=== PATIENT | male | born 1960 | race Two or more races ===

== ENCOUNTER 2024-11-22 13:34 | Inpatient (IN) | payer OTHER ==
[~2024-11-22] VITALS: Ht 160 cm; Wt 86.2 kg
[2024-11-22] MEDS ORDERED: ALBUTEROL SULFAT4 MG PO (15:33)
[2024-11-22] MEDS ORDERED: FLONASE16 GM NS (15:33)
[2024-11-22] MEDS ORDERED: MONTELUKAST SOD10 MG PO (15:33)
[2024-11-22] MEDS ORDERED: LOSARTAN-HCTZ1 EACH PO (15:33)
[2024-11-22] MEDS ORDERED: TRELEGY ELLIPT1 EACH IH (15:34)
[2024-11-22] MEDS ORDERED: KETOROLAC TROMETHAMINE 30 MG VIAL IV ONE (16:15)
[2024-11-22] MEDS ORDERED: FAMOTIDINE/PF 20 MG/2 ML VIAL IV ONE (16:15)
[2024-11-22] MEDS ORDERED: ONDANSETRON HCL 2 MG/ML VIAL IV ONE (16:15)
[2024-11-22] MEDS ORDERED: 0.9 % SODIUM CHLORIDE 500 ML IV ONE (16:15)
[2024-11-22 17:00] LABS: HEMATOCRIT 42.2 % (39.0-48.0); MEAN CELL VOLUME 93.4 fL (80.0-100.00); MEAN CORPUSCULAR HEMOGLOBIN 31.1 pg (27.00-32.0); MEAN CORPUSCULAR HGB CONC 33.3 g/dl (32.0-36.0); PLATELET COUNT 211 K/uL (150-450); RED BLOOD COUNT 4.51 M/uL (4.00-6.00); RED CELL DISTRIBUTION WIDTH 14.1 % (11.5-14.5)
[2024-11-22 17:27] LABS: ALBUMIN 3.3 gm/dL (3.4-5.0); BILIRUBIN TOTAL 0.87 mg/dL (0.3-1.2); CALCIUM 8.7 mg/dL (8.5-10.1); CREATININE SERUM 1.03 mg/dL (0.70-1.30); GFR 72.94; GLOBULINA 4.3 G/DL (2.4-3.5); POTASSIUM 3.87 mEq/L (3.5-5.1); TOTAL PROTEIN 7.6 gm/dL (6.4-8.2)
[2024-11-22 17:44] LABS: BILIRUBIN,CONJUGATED 0.15 mg/dL (0.0-0.2); BILIRUBIN,UNCONJUGATED 0.72 mg/dL (0.0-0.6)
[2024-11-22 17:58] LABS: PH,URINE 5.5 (5.0-8.0); URINE APPEARANCE Clear; URINE BILIRRUBIN Negative (NEGATIVE); URINE BLOOD Negative; URINE COLOR Yellow; URINE GLUCOSE Negative (NEGATIVE); URINE KETONE Negative (NEGATIVE); URINE LEUKOCYTE Negative; URINE NITRATE Negative; URINE PROTEIN Negative (NEGATIVE); URINE UROBILINOGEN 0.2 E.U./dl
[2024-11-22 18:03] LABS: URINE BACTERIA 19.5 uL (0.0-1933); URINE RBC 2.5 uL (0.0-20.8)
[2024-11-22 18:10] LABS: URINE EPITHELIAL CELLS 0.9 uL (0.0-38.8); URINE WBC 1.7 uL (0.0-23.2)
[2024-11-22 19:18] LABS: INR 1.04; PARTIAL THROMBOPLASTIN TIME 27.7 SECONDS (22.0-34.0); PROTHROMBIN TIME 11.3 SECONDS (9.0-11.5)
[2024-11-22] MEDS ORDERED: PIPERACILLIN/TAZOBACTAM SODIUM 3.375 GM VIAL IV ONE (22:15)
[2024-11-22] MEDS ORDERED: MORPHINE SULFATE 4 MG/ML CARTRIDGE IV SCH (22:30)
[2024-11-22] MEDS ORDERED: ONDANSETRON HCL 4 MG in 0.9 % SODIUM CHLORIDE 50 ML IV PRN (22:30)
[2024-11-22] MEDS ORDERED: ACETAMINOPHEN 500 MG GEL..CAP PO PRN (22:30)
[2024-11-22] MEDS ORDERED: 0.9 % SODIUM CHLORIDE 1,000 ML IV SCH (22:30)
[2024-11-22] MEDS ORDERED: HYOSCYAMINE SULFATE 0.125 MG TAB.SUBL PO ONE (22:30)
[2024-11-22 23:56] VITALS: BP 116/72; O2SAT 94
[2024-11-23] MEDS ORDERED: PIPERACILLIN/TAZOBACTAM SODIUM 3.375 GM in DEXTROSE 5 % IN WATER 100 ML IV SCH
[2024-11-23 02:07] VITALS: BP 131/73; O2SAT 91
[2024-11-23] MEDS ORDERED: MORPHINE SULFATE 2 MG/ML CARTRIDGE IV PRN (05:00)
[2024-11-23 08:15] VITALS: BP 123/63
[2024-11-23] MEDS ORDERED: LOSARTAN/HYDROCHLOROTHIAZIDE 1 UDTAB TABLET PO SCH (09:00)
[2024-11-23] MEDS ORDERED: FAMOTIDINE/PF 20 MG in 0.9 % SODIUM CHLORIDE 8 ML IV PUSH SCH (09:00)
[2024-11-23] MEDS ORDERED: ENOXAPARIN SODIUM 40 MG/0.4 ML SYRINGE SUBCUTANEO SCH (09:00)
[2024-11-23] MEDS ORDERED: ALBUTEROL SULFATE 3 ML/2.5 MG AMPUL.NEB IH STA (10:14)
[2024-11-23] MEDS ORDERED: BUDESONIDE 0.5 MG/2 ML AMPUL.NEB IH STA (10:15)
[2024-11-23] MEDS ORDERED: FLUCONAZOLE IN NACL,ISO-OSM 200 MG/100 ML PIGGYBAG IV STA (10:16)
[2024-11-23] MEDS ORDERED: ALBUTEROL SULFATE 3 ML/2.5 MG AMPUL.NEB IH SCH (13:00)
[2024-11-23] MEDS ORDERED: MONTELUKAST SODIUM 10 MG TABLET PO SCH (17:00)
[2024-11-23 17:31] VITALS: BP 118/68; O2SAT 96
[2024-11-23] MEDS ORDERED: BUDESONIDE 0.5 MG/2 ML AMPUL.NEB IH SCH (21:00)
[2024-11-24 00:32] VITALS: BP 118/70
[2024-11-24 08:09] VITALS: BP 141/65; O2SAT 90
[2024-11-24] MEDS ORDERED: FLUCONAZOLE IN NACL,ISO-OSM 200 MG/100 ML PIGGYBAG IV SCH (09:00)
[2024-11-24] MEDS ORDERED: CODEINE PHOSPHATE/GUAIFENESIN 5 ML ML PO SCH (13:00)
[2024-11-24 17:52] VITALS: BP 126/77; O2SAT 96
[2024-11-25 01:32] VITALS: BP 141/80
[2024-11-25 08:10] VITALS: BP 107/87; O2SAT 98
== END 2024-11-25 14:26 | disposition home or self-care (01) | DRG 392 ==
LOC: ER 13:37 → MEDI 22:31
PROVIDERS: General Practice; ADMIT Internal Medicine; ATTEND Internal Medicine
PROC: BW21YZZ Computerized Tomography (CT Scan) of Abdomen and Pelvis using Other Contrast (ICD-10-PCS; principal; 2024-11-22)
PROC: BW40ZZZ Ultrasonography of Abdomen (ICD-10-PCS; 2024-11-22)
PROC: 3E0F7GC Introduction of Other Therapeutic Substance into Respiratory Tract, Via Natural or Artificial Opening (ICD-10-PCS; 2024-11-23)
DX: K57.32 Diverticulitis of large intestine without perforation or abscess without bleeding (principal); K81.0 Acute cholecystitis; K90.49 Malabsorption due to intolerance, not elsewhere classified; K76.0 Fatty (change of) liver, not elsewhere classified; J45.909 Unspecified asthma, uncomplicated; R05.9 Cough, unspecified; I10 Essential (primary) hypertension